=== PATIENT | male | born 1955 | race Caucasian/White ===

== ENCOUNTER 2025-02-21 08:29 | Day surgery (SDC) | payer MEDICARE, OTHER ==
[~2025-02-21 08:29] MED LIST: Sodium Chloride 0.9% 10 ML Syringe FLUSH PRN
[2025-02-21] MEDS: Lactated Ringers 1,000 ML IV SCH (08:50)
[2025-02-21] MEDS ORDERED: Sodium Chloride 0.9% 10 ML Syringe FLUSH SCH (09:00)
[2025-02-21] MEDS: oxyCODONE ER 10 MG TAB.ER PO ONE (10:26)
[2025-02-21] MEDS ORDERED: propofoL 500 MG/50 ML 50 ML ONE (10:28)
[2025-02-21] MEDS ORDERED: Midazolam 1 MG/ML 2 ML SDV ONE (10:28)
[2025-02-21] MEDS ORDERED: Phenylephrine 1% 10 MG/ML SDV ONE (10:30)
[2025-02-21] MEDS ORDERED: Ondansetron 4 MG/2 ML SDV ONE (10:46)
[2025-02-21] MEDS ORDERED: Ropivacaine 0.5% 5 MG/ML 30 ML SDV ONE (10:59)
[2025-02-21] MEDS ORDERED: Lactated Ringers 1,000 ML IV ONE (11:15)
[2025-02-21] MEDS ORDERED: Propofol 200 MG/20 ML SDV ONE ×2 (11:28→11:45)
[2025-02-21] MEDS: Morphine 8 MG, EPINEPHrine 0.3 MG, Cefuroxime 750 MG, Ketorolac 30 MG, Sodium Chloride ... PRN (11:44)
[2025-02-21] MEDS: Triamcinolone Acetonide 40 MG/ML 1 ML SDV ONE (12:08)
== END 2025-02-21 15:40 | disposition home or self-care (01) ==
LOC: JD.SDS 08:29
PROVIDERS: ATTEND Orthopaedic Surgery
DX: M17.0 Bilateral primary osteoarthritis of knee (principal); E78.5 Hyperlipidemia, unspecified; F17.290 Nicotine dependence, other tobacco product, uncomplicated; E66.9 Obesity, unspecified; Z68.36 Body mass index [BMI] 36.0-36.9, adult; Z88.1 Allergy status to other antibiotic agents; Z79.899 Other long term (current) drug therapy
CPT/HCPCS: 0055T; 20610; 27447; 73560; 97116; 97161; 97530; A9270; C1713; C1776; J0169; J0665; J0690; J0697; J1885; J2250; J2272; J2371; J2405; J2704; J2795; J3301; J3373; J7120